=== PATIENT | female | born 1935 | race Caucasian/White ===

== ENCOUNTER 2017-01-17 11:15 | Observation (INO) | payer MEDICARE, OTHER ==
[2017-01-17] VITALS (7 sets, daily range): BP systolic 145–185; BP diastolic 63–87; PULSE 16–105; RESP 14–71; TEMP 95.2–95.9; O2SAT 96–98; Ht 157.5 cm; Wt 85.5 kg
[~2017-01-17] VITALS: Ht 157.5 cm; Wt 85.5 kg
[~2017-01-17 11:15] MED LIST: ALBU2.5V2 AEROSOL; BECL8.7A5 INH; CHOL100018 PO; DIGO125T70 PO; FURO40TA5 PO; LEVO50TA51 PO; LISI-126 PO; LORA0.5T86 PO; MAGN400T6 PO; NEBI5TAB8 PO; NITR0.4T39 SL; NYST60PO11 TOP; PANT40TA25 PO; POTA20TA10 PO; WARF2.5T73 PO; WARF5TAB6 PO
--- OUTSIDE RECORDS SUMMARY | 2017-01-17 11:24 | XMS REPORT | CCD ---
Author Author WAQAS SMITH Organization Unknown Address [address] [place], [place] [id number] Phone 0 Care Team Providers Care [employer] Attendant Name Role Phone ALLAN SOTO Attending Physician 0 Vital Signs Unknown or Not Available. Allergies Unknown or Not Available. Procedures Unknown or Not Available. History of Immunizations Unknown or Not Available. Problems Unknown or Not Available. Results BASIC METABOLIC - Collect Date/Time: 05/26/2015 10:07 Test Name Code Test Result Test Units Test Ref Range GLUCOSE 121 mg/dL L=70 H=110 BUN 40 mg/dL L=7 H=18 CREATININE 1.70 mg/ dL L=0.60 H=1.30 AGE 79 YEARS GFR 30.8 SODIUM 137 mmol/L L=136 H=145 POTASSIUM 4.6 mmol/ L L=3.5 H=5.1 CHLORIDE 102 mmol/L L=98 H=107 CO2 28 mmol/L L=21 H=32 CALCIUM 9.7 mg/dL L=8.5 H=10.1 THYROXINE (T4) FREE - Collect Date/Time: 05/26/2015 10:07 Test Name Code Test Result Test Units Test Ref Range FT4 1.12 ng/dL L=0.76 H=1.46 TSH - Collect Date/Time: 05/26/2015 10:07 Test Name Code Test Result Test Units Test Ref Range TSH 5.94 uIU/mL L=0.36 H=3.74 DIGOXIN - Collect Date/Time: 05/26/2015 10:07 Test Name Code Test Result Test Units Test Ref Range DIGOXIN 0.93 ng/mL L=0.90 H=2.00 CBC W/ DIFF - Collect Date/Time: 05/26/2015 10:07 Test Name Code Test Result Test Units Test Ref Range WBC 5.6 x10^3 L=4.8 H=10.8 RBC 3.85 x10^6 L=4.20 H=5.40 HEMOGLOBIN 12.1 g/ dL L=12.0 H=16.0 HEMATOCRIT 36.4 % L=37.0 H=47.0 MCV 95 fL L=80 H=100 MCH 31.6 pg L=27.0 H=33.0 MCHC 33.4 g/dL L=33.0 H=37.0 RDW 13.6 % L=11.5 H=14.5 PLATELETS 160 x10^3 L=150 H=450 MPV 8.3 fL L=7.8 H=11.0 NEUTROPHILS 58.9 % L=40.0 H=80.0 LYMPHOCYTES 23.6 % L=20.0 H=45.0 MONOCYTES 8.9 % L=0.0 H=10.0 EOSINOPHILS 8.5 % L=0.0 H=5.0 BASOPHILS 0.1 % L=0.0 H=2.0 REFLEX MAN DIFF NO N /A PT/INR - Collect Date/Time: 06/02/2015 09:20 Test Name Code Test Result Test Units Test Ref Range PT 33.5 Secs L=9.2 H=10.8 INR 3.12 L=0.00 H=4.00 PT/INR - Collect Date/Time: 05/26/2015 10:07 Test Name Code Test Result Test Units Test Ref Range PT 15.9 Secs L=9.2 H=10.8 INR 1.55 L=0.00 H=4.00 Active Medications Unknown or Not Available. Medications Administered During Visit Unknown or Not Available. Encounters Unknown or Not Available. Social History Smoking Status Code Start Date End Date Unknown if ever smoked [id number] Patient Decision Aids Unknown or Not Available. Discharge Instructions You were admitted to [facility] on 05/26/2015. Should you have any questions prior to discharge, please contact a member of your healthcare team. If you have left the hospital and have any questions, please contact your primary care physician. Chief Complaint and Reason For Visit Unknown or Not Available. Function Status Unknown or Not Available. Plan of Care Unknown or Not Available. Referral/Transition of Care Unknown or Not Available.
--- OUTSIDE RECORDS SUMMARY | 2017-01-17 11:24 | XMS REPORT | Summary of Care ---
Author Author Holger Alston M.D. Organization Unknown Address [address] [place] [phone] Phone Unavailable Care Team Providers Care Missile Inspector Name Role Phone Alecia Paniagua, O Unavailable Unavailable Lenny Griffith Unavailable Unavailable Unavailable Unavailable Functional Status Name Dates Details Functional status health issues are not documented Status: Name Dates Details Cognitive status health issues are not documented Status: Problems Name Dates Details Fatigue (780.79, R53.83) Status: Active Obstructive sleep apnea (327.23, G47.33) Status: Active Medications Name Dates Details Albuterol Sulfate (2.5 MG/3ML) 0.083% Inhalation Nebulization Solution USE 1 UNIT DOSE IN NEBULIZER 4 TIMES DAILY * Start 04-Aug-2016 Active Benadryl Allergy 25 MG Oral Tablet TAKE 1 TABLET AT BEDTIME. * Refills: 0 * Start 04-Aug-2016 Active Bystolic 5 MG Oral Tablet TAKE 1 TABLET DAILY. * Refills: 0 * Start 04-Aug-2016 Active Coumadin 1 MG Oral Tablet TAKE 1 TABLET DAILY. * Refills: 0 * Start 04-Aug-2016 Active Coumadin 5 MG Oral Tablet 1 tablet daily except 1/2 tab on monday and monday * Refills: 0 Holger Alston M.D. * Start 04-Aug-2016 Active Digox 125 MCG Oral Tablet TAKE 1 TABLET DAILY. * Refills: 0 * Start 04-Aug-2016 Active Ipratropium-Albuterol 0.5-2.5 (3) MG/3ML Inhalation Solution * Refills: 0 * Start 04-Aug-2016 Active Lasix 40 MG Oral Tablet TAKE 1 TABLET DAILY. * Refills: 0 * Start 04-Aug-2016 Active Levothyroxine Sodium 75 MCG Oral Tablet TAKE 1 TABLET DAILY. * Refills: 0 * Start 04-Aug-2016 Active Lisinopril 20 MG Oral Tablet TAKE 1 TABLET DAILY. * Refills: 0 * Start 04-Aug-2016 Active Magnesium Oxide 400 MG Oral Tablet TAKE 1 TABLET DAILY. * Refills: 0 * Start 04-Aug-2016 Active Metoprolol Succinate ER 50 MG Oral Tablet Extended Release 24 Hour * Refills: 0 * Start 04-Aug-2016 Active Nitroglycerin 0.4 MG Sublingual Tablet Sublingual * Refills: 0 * Start 04-Aug-2016 Active Pantoprazole Sodium 40 MG Oral Tablet Delayed Release TAKE 1 TABLET DAILY. * Refills: 0 * Start 04-Aug-2016 Active Pataday 0.2 % Ophthalmic Solution * Refills: 0 * Start 04-Aug-2016 Active Potassium Chloride ER 10 MEQ Oral Tablet Extended Release TAKE 1 TABLET DAILY. * Refills: 0 * Start 04-Aug-2016 Active ProAir HFA 108 (90 Base) MCG/ACT Inhalation Aerosol Solution * Refills: 0 * Start 04-Aug-2016 Active Spiriva Respimat 2.5 MCG/ACT Inhalation Aerosol Solution * Refills: 0 * Start 04-Aug-2016 Active Vitamin D3 1000 UNIT Oral Capsule * Refills: 0 * Start 04-Aug-2016 Active Supplies Resmed S10 Autoset 8-12 cm H2O, Permanent use, G47.33, Heated humidity, mask, headgear, filters, heated tubing, water chamber, chinstrap * Quantity: 1 Refills: 0 Holger Alston M.D. * Start 15-Sep-2016 Active Allergies and Adverse Reactions Name Dates Details Iodine SOLN (Allergy) Status: Active Macrobid (Allergy) Status: Active Penicillins (Allergy) Status: Active Prevacid (Allergy) Status: Active PriLOSEC PACK (Allergy) Status: Active Procedures Procedure Dates Details History of Hysterectomy History of Appendectomy History of Heart Surgery Procedures not documented Immunization Name Dates Details Immunizations not documented Family History Name Dates Details Family history of Obstructive sleep apnea, adult (327.23, G47.33) Status: Active Name Dates Details Family history of myocardial infarction (V17.3, Z82.49) Status: Active Social History Name Dates Details Unknown if ever smoked Vital Signs Date Test Result Details 15-Sep-2016 15:44 BP Systolic 146 mm[Hg] Status: Comments: Location: ; Position: BP Diastolic 82 mm[Hg] Status: Comments: Location: ; Position: Heart Rate 89 /min Status: Comments: Location: ; Height 62 in Status: Weight 195 lb Status: Physical Findings 95 Status: Comments: O2 Saturation Body Mass Index Calculated 35.67 kg/m2 Status: Body Surface Area Calculated 1.89 m2 Status: Results Date Description Value Details Results not documented Plan of Care Name Dates Details Planned Observations Planned Goals not documented Planned Encounters Appointment; Provider: Parvin Valdez A.P.R.N. On 17-Nov-2016 10:00 Interventions Provided Medication Changes* Supplies - Start Instructions Name Dates Details Instructions not documented Encounters Appointment; Holger Alston M.D. Encounter Diagnosis: Problem not documented On 04-Aug-2016 14:30
--- OUTSIDE RECORDS SUMMARY | 2017-01-17 11:24 | XMS REPORT | Summary of Care ---
Author Author Holger Alston M.D. Organization Unknown Address [address] [place] [phone] Phone Unavailable Care Team Providers Care [place]man Name Role Phone Alecia Paniagua, O Unavailable Unavailable Lenny Griffith Unavailable Unavailable Functional Status Name Dates Details Functional status health issues are not documented Status: Name Dates Details Cognitive status health issues are not documented Status: Problems Name Dates Details Obstructive sleep apnea (327.23, G47.33) Status: Active Fatigue (780.79, R53.83) Status: Active Medications Name Dates Details Albuterol [...] * Refills: 0 * Start 04-Aug-2016 Active Allergies and Adverse Reactions Name Dates [...] smoked Vital Signs Date Test Result Details 04-Aug-2016 13:43 BP Systolic 132 mm[Hg] Status: Comments: Location: ; Position: BP Diastolic 80 mm[Hg] Status: Comments: Location: ; Position: Heart Rate 78 /min Status: Comments: Location: ; Height 62 in Status: Weight 198 lb Status: Physical Findings 91 Status: Comments: O2 Saturation Body Mass Index Calculated 36.21 kg/m2 Status: Body Surface Area Calculated 1.9 m2 Status: Results Date Description Value Details Results not documented Plan of Care Name Dates Details Planned Observations Planned Goals not documented Planned Encounters Appointment; Provider: Holger Alston M.D. On 15-Sep-2016 15:30 Instructions Name Dates Details Instructions not documented Encounters Appointment; Holger Alston M.D. Encounter Diagnosis: Problem not documented On 04-Aug-2016 14:30
[2017-01-17] MEDS ORDERED: METO-482 PO (12:02)
--- NOTE | 2017-01-17 12:24 | NUR ---
ADMISSION PT ADMITTED TO ROOM 151 VIA WHEELCHAIR DIRECT ADMIT AT 1135. PT IS A&OX3, UP WITH ONE ASSIST, STAND PIVOT TO CHAIR. PT DENIES PAIN, AND SOA BUT REPORTS SOME NAUSEA. PT AND ORIENTED TO BED AND ROOM. IVL PLACED TO LEFT WRIST AND FLUIDS STARTED. AWAITING FURTHER ORDERS. ALARMS IN USE AND CALL LIGHT WITH IN REACH.
[2017-01-17 12:29] LABS: HCT - HEMATOCRIT 39.3 % (36-46); HGB - HEMOGLOBIN 12.5 GM/DL (12-16); MEAN CORPUSCULAR HGB 29.4 UUG (26-34); MEAN CORPUSCULAR HGB CONC(MCHC 31.8 GM/DL (31-37); MEAN CORPUSCULAR VOLUME 92.5 UM3 (80-100); RED BLOOD COUNT 4.25 M/MM3 (4.00-5.20); WBC - WHITE BLOOD COUNT 13.1 T/MM3 (4.5-11.0)
[2017-01-17 12:35] LABS: ALBUMIN 3.6 G/DL (3.5-5.0); ALBUMIN/GLOBULIN RATIO 1.1 RATIO (1.1-2.2); ALKALINE PHOSPHATASE 88 U/L (38-126); ALT (SGPT) 33 U/L (9-52); ANION GAP 15 MEQ/L (5-15); AST (SGOT) 15 U/L (14-36); BUN/CREATININE RATIO 27 RATIO (6-26); CALCIUM 9.5 MG/DL (8.4-10.2); CHLORIDE 103 MEQ/L (98-107); CO2 - CARBON DIOXIDE 22 MEQ/L (22-30); CREATININE 1.6 MG/DL (0.7-1.2); GLOMERULAR FILTRATION RATE 31; GLUCOSE 115 MG/DL (65-110); LIPASE 123 U/L (23-300); MAGNESIUM 1.9 MG/DL (1.6-2.3); POTASSIUM 4.3 MEQ/L (3.6-5); SODIUM 140 MEQ/L (134-144); TOTAL PROTEIN 6.8 G/DL (6.3-8.2)
[2017-01-17 12:44] LABS: PROBNP 526 PG/ML (0-175)
[2017-01-17] MEDS ORDERED: MORPHINE SULFATE 10 MG SYRINGE IV PRN (12:45)
[2017-01-17] MEDS ORDERED: ALBUTEROL/IPRATROPIUM INHAL. 2.5mg-0.5mg/3ml Neb. AEROSOL PRN (12:45)
[2017-01-17] MEDS ORDERED: METOCLOPRAMIDE 10mg/2ml INJECTION IV PRN (12:45)
[2017-01-17] MEDS ORDERED: DiphenhydrAMINE 50 MG/ML INJECTION IV ONE (12:45)
[2017-01-17] MEDS ORDERED: RANITIDINE 150 MG TABLET PO ONE (12:45)
[2017-01-17] MEDS: PANTOPRAZOLE 40mg INJECTION IV SCH ×2 (13:03→21:28)
[2017-01-17] MEDS: D5-1/2 NS KCL 20 MEQ 1,000 ML IV SCH ×2 (13:04→21:31)
[2017-01-17 13:41] LABS: ANISOCYTOSIS 1+; BAND NEUTROPHILS # 0.1 T/MM3; LYMPHOCYTES # (MANUAL) 2.4 T/MM3 (1-4.8); MONOCYTES # (MANUAL) 0.8 T/MM3 (0-0.8); NEUTROPHILS #(MANUAL)-ABSOLUTE 9.8 T/MM3 (1.8-7.7); TOTAL CELLS COUNTED 100 %
[2017-01-17] MEDS ORDERED: IODIXANOL 320 MG/ML 100ml INJECTION IV ONE (13:50)
[2017-01-17] MEDS ORDERED: SALINE FLUSH 10ml SYRINGE ONE (13:50)
[2017-01-17] MEDS ORDERED: NORMAL SALINE 100 ML ONE (13:50)
[2017-01-17] MEDS: ENOXAPARIN 40 MG/0.4 ML INJECTION SQ SCH (14:05)
--- NOTE | 2017-01-17 14:38 | DI ---
Indication: ITS.REASON: Abdominal PAIN PROCEDURE: CT ABD/PELVIS W/CONTRAST ONLY: Encounter: Initial Comparison: July 15, 2016 Technique: Axial CT images were performed through the abdomen and pelvis after the administration of intravenous contrast. Coronal and sagittal two-dimensional reformats. Automated Exposure Control and Iterative Reconstruction dose reducing techniques were utilized. Contrast: Omnipaque 300 100 mL Findings: Poststernotomy changes and cardiac valve replacements. The lung bases are clear. Small to moderate hiatal hernia. The liver is slightly decreased in attenuation relative to the spleen. No enhancing liver mass or bile duct dilatation. The gallbladder is surgically absent. The spleen, pancreas and adrenal glands are within normal limits. Stable bilateral renal cysts. Atherosclerotic plaque in the abdominal aorta and its major branches causing areas of stenosis in the celiac, SMA and bilateral renal arteries. No abdominal or pelvic lymphadenopathy. Metallic artifact from a right hip replacement obscuring portions of the pelvis. The visualized bladder is grossly normal. Uterus is surgically absent. No free fluid. No evidence of a bowel obstruction. Nondilated fluid-filled small bowel loops seen with some fluid-filled portions of the right and transverse colon. Prior appendectomy. Bone windows show no acute findings. Impression: Findings of a gastroenteritis. .
[2017-01-17 14:54] LABS: BLOOD, URINE 1+ (NEGATIVE); COLOR,URINE YELLOW (YELLOW); LEUKOCYTE ESTERASE ,URINE TRACE (NEGATIVE); NITRITE,URINE NEGATIVE (NEGATIVE); UROBILINOGEN,URINE 0.2 EU/DL (NORMAL)
[2017-01-17 14:57] LABS: SQUAMOUS EPITHELIAL CELL,UR >50
[2017-01-17 14:59] LABS: BACTERIA,URINE 3+ (NEGATIVE); WBC CLUMPS,URINE FEW
--- NOTE | 2017-01-17 15:03 | DI ---
INDICATION: ITS.REASON: EPIGASTRIC PAIN PROCEDURE: CHEST 2-VIEWS UPRIGHT (PA \T\ LAT) Encounter: Initial COMPARISON: May 18, 2015 FINDINGS: The lungs are clear without evidence of focal abnormal airspace opacity. There is no pleural effusion or pneumothorax. Poststernotomy changes are present. Right axillary surgical clips. Cardiac valve replacement. The heart size, mediastinal contours and pulmonary vascularity are unchanged. IMPRESSION: No acute cardiopulmonary disease. .
--- NOTE | 2017-01-17 15:17 | HPF ---
CHIEF COMPLAINT Tired, diarrhea, abdominal pain. HPI The patient is an 81-year-old female who presented to the office to see Dr. Lenny Griffith, her PCP. She was accompanied today by her to the office. The chief complaint is that of a 2-3 day history of diarrhea--watery diarrhea, some vomiting, as well as profound fatigue. In addition, she was complaining of epigastric pain over the last two weeks. She can hold some fluid down, but she really cannot eat any solid food. She feels profoundly tired--"No energy." She denies any hemoptysis. She denies any hematochezia or melena. Denies any TIA or CVA symptoms. Denies any symptoms of urinary tract infection. No chest pain. No palpitations or tachycardia. PAST MEDICAL HISTORY 1. Hypothyroidism. 2. Hypertension. 3. GERD. 4. Hiatal hernia. 5. Asthma. 6. Depression. 7. Mitral valve prolapse. 8. Recurrent atrial fibrillation. 9. Chronic dyspnea on exertion. 10. Pulmonary hypertension. 11. Sleep apnea. 12. Hypertrophic disease including left ventricular hypertrophy and diastolic heart failure. PAST SURGICAL HISTORY 1. Hysterectomy. 2. Appendectomy. 3. Tonsils removed bilaterally. 4. Patient status post mitral valve as well as tricuspid valve repair in February 2013 by Elsy Khan. SOCIAL HISTORY The patient is with children. No smoking. No alcohol use. No drug use. FAMILY HISTORY Father had a myocardial infarction and at the age of 56. Brother had valvular heart disease. Son had a gunshot at [place] and at his 30s. Family history of heart disease and hypertension is noted. ALLERGIES Allergies are listed as penicillin, Prilosec, Prevacid, Macrobid, and iodine. CURRENT MEDICATION 1. Albuterol one unit-dose q.i.d. 2. Warfarin with variable dosage. 3. Lanoxin 125 mcg one tablet daily. 4. DuoNeb q.i.d. and p.r.n. 5. Lasix 40 mg one tablet p.o. b.i.d. 7. Magnesium oxide 400 mg one tablet daily. 8. Metoprolol 50 mg one tablet daily. 9. Nitroglycerin sublingual. 10. Pantoprazole 40 mg one tablet daily. 11. Pataday 0.2 one drop in each eye p.r.n. 12. Potassium 10 mEq one tablet daily. 13. Pravastatin 20 mg one tablet daily. 14. Spiriva one puff daily. 15. Vitamin D3 1,000 mcg one tablet twice daily. PHYSICAL EXAMINATION GENERAL: The patient looks ill but not septic. The patient looks tired. VITALS: Weight is 178.6 pounds. Patient has lost about 11 pounds just in the last two weeks alone. Blood pressure is 130/70 with a pulse of 80. Temperature 97.8. NECK: Supple. CHEST: Lungs sound clear. CARDIOVASCULAR: Regular rate and rhythm. ABDOMEN: Soft. Patient is severely tender in the epigastric region. Bowel sounds are normoactive. No masses palpable. EXTREMITIES: No significant change in edema. ASSESSMENT 1. Acute gastroenteritis, probably viral. 2. Dehydration. 3. Excess weight loss in two weeks. 4. Abdominal epigastric pain. 5. Fatigue. 6. History of congestive heart failure. No evidence of decompensation at this time. 7. Chronic dyspnea. PLAN Admit patient to [facility] under the care of Dr. Lenny Griffith. Extensive workup, IV fluid replacement, CT abdomen and pelvis to follow up on the epigastric pain, start patient on Protonix IV, get lab including CBC, CMP, UA, troponin I, chest x-ray and EKG and BMP. All of this is pending. [facility]
[2017-01-17] MEDS: ALBUTEROL/IPRATROPIUM INHAL. 2.5mg-0.5mg/3ml Neb. AEROSOL SCH ×2 (16:05→19:45)
--- NOTE | 2017-01-17 17:27 | NUR ---
SHIFT PT HAS BEEN PLEASANT AND COOPERATIVE ALL SHIFT. PT IS A&OX3, UP WITH ONE ASSIST, GAIT BELT AND WALKER. PT DENIES PAIN, N/V AT THIS TIME AND SOA. PT IS ON ROOM AIR. HAS BEEN AT BEDSIDE. PT CONTINUES NPO STATUS. DIAGNOSTIC TESTING IN PROCESS. PT HAS BEEN UP TO BATHROOM, ADEQUATE OUTPUT. NO OTHER CHANGES SINCE PREVIOUS NOTE. ALARMS IN USE AND CALL LIGHT WITH IN REACH.
[2017-01-17] MEDS: LEVOFLOXACIN 500 mg IVPB 500 MG in D5W 100 ML IV SCH (18:48)
[2017-01-17] MEDS ORDERED: DIGOXIN 500mcg/2ml INJECTION IV ONE (22:30)
[2017-01-17] MEDS ORDERED: ALBUTEROL INH.SOLN. 2.5 MG/0.5 ML (0.5%) Neb. AEROSOL PRN (22:30)
[2017-01-17] MEDS ORDERED: LORAZEPAM 0.5 MG TABLET PO PRN (22:30)
[2017-01-17] MEDS ORDERED: LISINOPRIL 20 MG TABLET PO SCH (22:30)
[2017-01-17] MEDS ORDERED: NITROGLYCERIN 0.4 MG SUBLINGUAL TABLET SL PRN (22:30)
--- NOTE | 2017-01-17 22:30 | NUR ---
Home Meds Dr. Griffith restarted home meds after patient complained of chest palpitations and anxiety. BP was 185/87 with HR 90-110 irregular. Placed pt in staff-initiated telemetry and pt was in A-fib. Gladis also ordered x1 dose of 125 mcg Digoxin IV now and ordered to check digoxin levels with blood already in lab.
[2017-01-18] VITALS (9 sets, daily range): BP systolic 108–166; BP diastolic 58–68; PULSE 74–105; RESP 16–18; TEMP 96.1–98; O2SAT 95–99
--- NOTE | 2017-01-18 05:10 | NUR ---
Status Pt somewhat confused at times. Ox3 in evening, but anxious and not understanding of cares at times. Pt denied nausea during shift. Adequate urine output. No diarrhea or stool. Gave PRN ativan for anxiety and sleeplessness. Up with 1, GB, and walker. During ambulation to BR at approx 0035 pt stated she felt weak. At 0342 ambulation to BR was much stronger and pt denied weakness or SOA.
[2017-01-18 05:17] LABS: ALBUMIN 3.7 G/DL (3.5-5.0); ALBUMIN/GLOBULIN RATIO 1.2 RATIO (1.1-2.2); ALKALINE PHOSPHATASE 78 U/L (38-126); ALT (SGPT) 24 U/L (9-52); ANION GAP 15 MEQ/L (5-15); AST (SGOT) 14 U/L (14-36); BUN/CREATININE RATIO 24 RATIO (6-26); CALCIUM 9.8 MG/DL (8.4-10.2); CHLORIDE 107 MEQ/L (98-107); CO2 - CARBON DIOXIDE 21 MEQ/L (22-30); CREATININE 1.3 MG/DL (0.7-1.2); GLOMERULAR FILTRATION RATE 39; GLUCOSE 143 MG/DL (65-110); POTASSIUM 4.8 MEQ/L (3.6-5); SODIUM 143 MEQ/L (134-144); TOTAL PROTEIN 6.7 G/DL (6.3-8.2)
[2017-01-18] MEDS: D5-1/2 NS KCL 20 MEQ 1,000 ML IV SCH ×2 (05:49→12:45)
[2017-01-18] MEDS ORDERED: LEVOTHYROXINE 50 MCG TABLET PO SCH (06:30)
[2017-01-18] MEDS ORDERED: ALBUTEROL INH.SOLN. 2.5mg/3ml (0.083%) Neb. AEROSOL PRN (06:45)
[2017-01-18] MEDS: ALBUTEROL/IPRATROPIUM INHAL. 2.5mg-0.5mg/3ml Neb. AEROSOL SCH ×3 (07:01→15:10)
[2017-01-18] MEDS: FUROSEMIDE 40 MG TABLET PO SCH ×2 (08:38→17:36)
[2017-01-18] MEDS: LEVOFLOXACIN 500 mg IVPB 500 MG in D5W 100 ML IV SCH (08:38)
[2017-01-18] MEDS: POTASSIUM CHLORIDE 20 MEQ TABLET PO SCH ×2 (08:38→17:36)
[2017-01-18] MEDS: PANTOPRAZOLE 40mg INJECTION IV SCH (08:39)
[2017-01-18] MEDS: ENOXAPARIN 40 MG/0.4 ML INJECTION SQ SCH (08:39)
[2017-01-18] MEDS ORDERED: CHOLECALCIFEROL 1,000 UNIT TABLET PO SCH (09:00)
[2017-01-18] MEDS ORDERED: MAGNESIUM OXIDE 400 MG TABLET PO SCH (09:00)
[2017-01-18] MEDS ORDERED: DIGOXIN 125 MCG TABLET PO SCH (09:00)
--- NOTE | 2017-01-18 09:51 | NUR ---
RENAL DOSING: Today's SCr = 1.3 mg/dl. Calculated CrCl = 34 ml/min. I changed the Levofloxacin from 500 mg iv every 24 hours to 250 mg iv every 24 hours per decreased renal function per the Renal Monitoring and Adjustment Program. The pharmacy will continue to review the renal function and adjust the medications accordingly. Thanks, Jg Garcia, [facility]
--- NOTE | 2017-01-18 17:10 | NUR ---
SHIFT PT HAS BEEN PLEASANT AND COOPERATIVE ALL SHIFT. PT IS A&OX3, UP WITH ONE ASSIST, GAIT BELT AND WALKER. PT HAS BEEN UP TO RECLINER ALL OF SHIFT AND HAS AMBULATED IN [place] TWICE THIS SHIFT. PT EATS 100% OF MEALS AND DENIES PAIN, N/V AND SOA. PT IS ON ROOM AIR. HAS BEEN AT BEDSIDE. NO OTHER CHANGES SINCE PREVIOUS SHIFT. ALARMS IN USE AND CALL LIGHT WITH IN REACH.
[2017-01-18] MEDS ORDERED: CEPH500C2 PO (18:00)
--- NOTE | 2017-01-18 19:13 | NUR ---
DISMISSAL PT IS DISMISSED TO HOME VIA WHEELCHAIR TO VEHICLE AT 1840. PT BELONGINGS PACKED, GO HOME INSTRUCTIONS GIVEN, IVL PULLED, PT DRESSED AND SCRIPT CALLED TO YINA.
[2017-01-19] MEDS ORDERED: LEVOTHYROXINE 50 MCG TABLET PO SCH (06:30)
[2017-01-19] MEDS ORDERED: CEPHALEXIN 500 MG CAPSULE PO SCH (09:00)
[2017-01-19] MEDS ORDERED: LEVOFLOXACIN IV SCH (09:00)
[2017-01-19] MEDS ORDERED: D5W IV SCH (09:00)
--- NOTE | 2017-01-20 14:17 | DSF ---
FINAL DIAGNOSES 1. Acute gastroenteritis most likely viral. 2. Urinary tract infection not otherwise specified. 3. Dehydration. 4. Excessive weight loss in the last two weeks. 5. Epigastric pain. 6. Fatigue. 7. Chronic congestive heart failure. No evidence of acute decompensation at this time. 8. Chronic dyspnea. REASON FOR ADMISSION Patient is an 81-year-old female who presented to the office to see Dr. Lenny Griffith, her primary care physician, on 01/17/2017. At that time, she complained of 2-3 day history of diarrhea which was watery in nature, some vomiting, as well as profound fatigue. In addition, she was complaining of epigastric pain over the last two weeks. She could hold some fluid down but she could not really eat any solid food at this time. She was profoundly tired, "lack of energy". PHYSICAL EXAMINATION Patient looked ill but not septic. She looked very tired. She lost about 11 pounds from just two weeks ago. She is really very tender in the epigastric region. Bowel sounds were normoactive. LABORATORY CBC showed white blood count of 13,100 with a band of 1. Electrolytes: Creatinine 1.6, glucose 143, total bilirubin 1.8. Liver function tests were normal. Plasma lactate 1.1. HOSPITAL COURSE Patient was admitted to the general medical floor on an outpatient basis under the care of Dr. Lenny Griffith. Patient was made initially NPO, her diet was advanced as tolerated, which she did. In addition also patient received IV fluid hydration for rehydration. She was placed on Levaquin IV because of urinary tract infection not otherwise specified at this time. She responded really well to her IV fluids and IV antibiotics. Patient had a brief episode of atrial fibrillation with rapid ventricular response which normalized with time. She felt good, she was eating 100% of her meals. She was able to ambulate. Nausea has stopped, diarrhea has stopped. She desires to go home. She was medically stable to be dismissed to home. DISMISSAL MEDICATIONS 1. Cephalexin 500 mg one tablet twice a day for 14 days. 2. Vitamin D3 1000 units daily. 3. Lanoxin 125 mcg one tablet daily. 4. Furosemide 40 mg one tablet p.o. b.i.d. 5. Levothyroxine 50 mcg one tablet daily. 6. Lisinopril 20 mg one tablet at bedtime. 7. Lorazepam 0.5 mg p.o. t.i.d. p.r.n. anxiety. 8. Magnesium oxide 400 mg one tablet daily. 9. Lopressor 50 mg one tablet at bedtime. 10. Nitroglycerin 0.4 mg sublingual p.r.n. chest pain. 11. Potassium chloride 20 mEq p.o. b.i.d. 12. Warfarin 2.5 mg Monday, Monday, Monday and 1 mg on other days. Patient is to follow up with me in the office in 7-10 days. KRISTID
== END 2017-01-18 18:20 | disposition home or self-care (01) ==
LOC: MED 11:15
PROVIDERS: ADMIT Family Medicine; ATTEND Family Medicine
DX: K52.9 Noninfective gastroenteritis and colitis, unspecified (principal); N39.0 Urinary tract infection, site not specified; E86.0 Dehydration; R63.4 Abnormal weight loss; Z68.34 Body mass index [BMI] 34.0-34.9, adult; I50.32 Chronic diastolic (congestive) heart failure; R06.09 Other forms of dyspnea; E03.9 Hypothyroidism, unspecified; I10 Essential (primary) hypertension; K21.9 Gastro-esophageal reflux disease without esophagitis; K44.9 Diaphragmatic hernia without obstruction or gangrene; J45.909 Unspecified asthma, uncomplicated; F32.9 Major depressive disorder, single episode, unspecified; I34.1 Nonrheumatic mitral (valve) prolapse; I48.91 Unspecified atrial fibrillation; I27.2 Other secondary pulmonary hypertension; G47.30 Sleep apnea, unspecified; Z82.49 Family history of ischemic heart disease and other diseases of the circulatory system; Z79.01 Long term (current) use of anticoagulants; Z79.899 Other long term (current) drug therapy
CPT/HCPCS: 36415; 71020; 74177; 80053; 80162; 81001; 82150; 83605; 83690; 83735; 83880; 84484; 85007; 85027; 87086; 93005; 94640; 96361; 96365; 96366; 96372; 96375; 96376; A9270; C9113; G0378; G0379; J1160; J1200; J1650; J1956; J2765; J2930; J7050; J7060; Q9967; 99218